=== PATIENT | male | born 1960 ===

== ENCOUNTER 2017-07-31 12:39 | Emergency (ER) | payer MEDICAID ==
[2017-07-31 12:50] VITALS: BP 146/74; PULSE 86; RESP 18; TEMP 98.1; O2SAT 100
--- NOTE | 2017-07-31 13:57 | RAD ---
PROCEDURE: Left ankle dated 07/31/2017 HISTORY: Left lower extremity pain. COMPARISON: Correlation made with concurrent radiographs of the left foot. FINDINGS: BONES: No evidence of acute displaced fracture nor dislocation. Osseous structures appear grossly intact. . There is however small rounded elliptical shaped corticated density adjacent within the soft tissues adjacent to the inferior tip of the medial malleolus that may represent some old posttraumatic mineralization or sequela of old unfused avulsion injury. Clinical correlation recommended. No obvious cortical destructive changes. Diffuse soft tissue swelling nonspecific. Rule out underlying posttraumatic, infectious (such is a cellulitis) or vascular etiologies. No gas seen within the soft tissues. There are no radiopaque or foreign body seen. . Mild degenerative changes of the tibiotalar articulation and tarsal bones most pronounced dorsally seen on lateral projection. There is small to medium-sized of plantar surface calcaneal enthesophyte. . Impression: No acute fractures. Questionable of posttraumatic mineralization or sequela of old unfused avulsion injury adjacent to the inferior tip medial malleolus. Clinical correlation recommended. Mild DJD as described. Diffuse soft tissue swelling the; rule out posttraumatic, infectious such as cellulitis or vascular etiologies.
--- NOTE | 2017-07-31 14:11 | US ---
HISTORY: LLE pain . PRIORS: None. FINDINGS: 2-D, color and duplex Doppler analysis of the lower extremity venous circulation using routine protocol from the femoral veins through the popliteal veins. Venous compressibility: Normal. Flow and augmentation patterns: Normal. Visualized veins upper third of calf: Normal. Mcknight cyst: None. IMPRESSION: No sonographic or Doppler evidence for DVT in left lower extremity.
--- NOTE | 2017-07-31 14:27 | ED PDOC ---
Lower Extremity Pain/Injury Time Seen by Provider: 07/31/17 13:02 Chief Complaint (Nursing): Lower Extremity Problem/Injury Chief Complaint (Provider): Left Leg Pain and Swelling History Per: Patient History/Exam Limitations: no limitations Onset/Duration Of Symptoms: Persistent (Patient reports he has been experiencing symptoms for many months.) Current Symptoms Are (Timing): Still Present Additional Complaint(s): Fercho Simental is a 57 year old male with a history of hypertension, diabetes, and possible asthma that presents to the ED with a chief complaint of left leg pain and swelling that he reports has been ongoing for many months. Patient states that he has fallen within the last several weeks but is unable to recall a precise date. He denies any chest pain, shortness of breath, fever, wounds to the lower extremity, or a history of blood clots. Past Medical History Reviewed: Historical Data, Nursing Documentation, Vital Signs Vital Signs: Last Vital Signs Temp 98.1 F 07/31/17 12:46 Pulse 86 07/31/17 12:46 Resp 18 07/31/17 12:46 BP 146/74 07/31/17 12:46 Pulse Ox 100 07/31/17 12:46 - Medical History PMH: Asthma, Diabetes, HTN Other PMH: Patient denies hx of blood clots. - Family History Family History: States: Unknown Family Hx - Home Medications Home Medications: Ambulatory Orders Medication Instructions Recorded Ibuprofen [Motrin Tab] 600 mg PO Q6 PRN #15 tab 07/31/17 - Allergies Allergies/Adverse Reactions: Allergies Allergy/AdvReac Type Severity Reaction Status Date / Time No Known Allergies Allergy Verified 07/31/17 12:46 Review of Systems Constitutional: Negative for: Fever Cardiovascular: Negative for: Chest Pain Respiratory: Negative for: Shortness of Breath Musculoskeletal: Positive for: Leg Pain (left leg pain). Negative for: Other ( Patient denies wounds to his left leg.) Physical Exam - Reviewed Nursing Documentation Reviewed: Yes Vital Signs Reviewed: Yes - Physical Exam Appears: Positive for: Non-toxic, No Acute Distress (Patient is obese.) Head Exam: Positive for: ATRAUMATIC, NORMOCEPHALIC Skin: Positive for: Normal Color, Warm Pulses-Post. Tibialis (L): 3+/4+ (3+) Pulses-Post. Tibialis (R): 2+ Gastrointestinal/Abdominal: Positive for: Soft, Distended. Negative for: Tenderness Extremity: Positive for: Pedal Edema (Left leg has 3+ pitting edema, with mild, chronic-appearing skin changes.), Other (Left foot is warm without evidence of ulcerations.). Negative for: Normal ROM Neurologic/Psych: Positive for: Alert, Oriented. Negative for: Motor/Sensory Deficits - ECG O2 Sat by Pulse Oximetry: 100 (RA) Pulse Ox Interpretation: Normal Medical Decision Making Medical Decision Making: Impression: Left Leg Pain Plan: * Ibuprofen 600 mg PO * X-Ray Left Foot * X-Ray Left Ankle * US Duplex Left Lower Extremity Vein * Accucheck * Reevaluation 14:33 Patient's glucose level is 137. US Duplex Left Lower Extremity Vein FINDINGS: 2-D, color and duplex Doppler analysis of the lower extremity venous circulation using routine protocol from the femoral veins through the popliteal veins. Venous compressibility: Normal. Flow and augmentation patterns: Normal. Visualized veins upper third of calf: Normal. Mcknight cyst: None. IMPRESSION: No sonographic or Doppler evidence for DVT in left lower extremity. X-Ray Left Ankle FINDINGS: BONES: No evidence of acute displaced fracture nor dislocation. Osseous structures appear grossly intact. . There is however small rounded elliptical shaped corticated density adjacent within the soft tissues adjacent to the inferior tip of the medial malleolus that may represent some old posttraumatic mineralization or sequela of old unfused avulsion injury. Clinical correlation recommended. No obvious cortical destructive changes. Diffuse soft tissue swelling nonspecific. Rule out underlying posttraumatic, infectious (such is a cellulitis) or vascular etiologies. No gas seen within the soft tissues. There are no radiopaque or foreign body seen. . Mild degenerative changes of the tibiotalar articulation and tarsal bones most pronounced dorsally seen on lateral projection. There is small to medium-sized of plantar surface calcaneal enthesophyte. . Impression: No acute fractures. Questionable of posttraumatic mineralization or sequela of old unfused avulsion injury adjacent to the inferior tip medial malleolus. Clinical correlation recommended. Mild DJD as described. Diffuse soft tissue swelling the; rule out posttraumatic, infectious such as cellulitis or vascular etiologies. Scribe Attestation: Documented by Rukhsana Weathers, acting as a scribe for Joesph Topete III, DO. Provider Scribe Attestation: All medical record entries made by the Scribe were at my direction and personally dictated by me. I have reviewed the chart and agree that the record accurately reflects my personal performance of the history, physical exam, medical decision making, and the department course for this patient. I have also personally directed, reviewed, and agree with the discharge instructions and disposition. Disposition - Clinical Impression Clinical Impression: Ankle pain, Leg edema - Patient ED Disposition Is Patient to be Admitted: No Counseled Patient/Family Regarding: Studies Performed, Diagnosis, Need For Followup - Disposition Referrals: Elvin Tuttle MD [Family Provider] - Disposition: Routine/Home Disposition Time: 14:45 Condition: STABLE Additional Instructions: Followup with PMD in 2-3 days for further testing. Keep legs elevated when able to. Return to ER for any worse or new symptoms/ Prescriptions: Ibuprofen [Motrin Tab] 600 mg PO Q6 PRN #15 tab PRN Reason: Pain, Moderate (4-7) Instructions: Leg Edema (ED), Arthralgia (ED), Leg Pain (ED) Forms: [facility] (Albanian) Print Language: JAMAICAN
--- NOTE | 2017-07-31 15:22 | RAD ---
PROCEDURE: Left Foot Radiographs. HISTORY: LLE pain COMPARISON: None. FINDINGS: BONES: Bone alignment is normal. There is no acute fracture or bone destruction. There is a prominent plantar calcaneal spur. JOINTS: Normal. SOFT TISSUES: There is severe soft tissue swelling in the dorsal foot. OTHER FINDINGS: None. IMPRESSION: Severe dorsal soft tissue swelling in the foot which in the appropriate clinical setting could represent cellulitis. No acute fracture or bone destruction.
== END 2017-07-31 15:33 | disposition home or self-care (01) ==
LOC: H.ER 12:39
DX: M25.572 Pain in left ankle and joints of left foot (principal); R60.0 Localized edema; I10 Essential (primary) hypertension; E11.9 Type 2 diabetes mellitus without complications; J45.909 Unspecified asthma, uncomplicated; M19.072 Primary osteoarthritis, left ankle and foot